=== PATIENT | male | born 1955 | race Caucasian/White ===

== ENCOUNTER 2019-05-04 10:23 | Emergency (ER) | payer OTHER ==
--- NOTE | 2019-05-04 10:26 | PDOC ---
History of Present Illness - General Chief Complaint: Pain Stated Complaint: ABDOMINAL PAIN Time Seen by Provider: 05/04/19 10:26 History Source: Patient Exam Limitations: No Limitations - History of Present Illness Initial Comments: 05/04/19 10:27 HPI 63-year-old male with history of essential tremor on propranolol, uncomplicated diverticulitis, anxiety depression, GERD presenting with left lower quadrant pain x 3 days. He was seen in the outpatient office with Dr Amor for his left lower quadrant plate pain about 1 month ago and presumed to be sigmoid diverticulitis, patient at that time had declined labs or CT imaging and had been advised diet and oral antibiotic course, Augmentin x14-day course which has been completed. He has been compliant with his diet for diverticulitis and felt improved after abx course. has history of uncomplicated diverticulitis previously and treated with course of cipro/flagyl, Pt started developing LLQ x 3 days, denies alleviating or exacerbating factors. no trauma. no systemic symptoms. Denies fever, chills, chest pain, SOB, palpitation, dizziness, weakness, N, V, D , bladder and bowel problems, urinary symptoms, focal weakness/paresthesias, leg swelling/pain, rash. No sick contacts or travel. No new changes in medications. No suspicious food intake Allergies: None Past Medical History: essential tremor diverticulitis, anxiety depression and GERD PSH: ganglion cyst removal. no major abdominal surgeries. Social history: Lives with family. No tobacco, ETOH or drug use. Meds: omeprazole, propranolol PMD: Dr Amor Review of systems Constitutional: no fevers or chills. No weakness HEENT: no headache or dizziness. CVS: no cp or syncope. Resp: no sob. No cough. Gastrointestinal: +abdominal pain, No nausea, vomiting, diarrhea. no constipation. Genitourinary: no urinary sx, hematuria. no urgency or frequency or dysuria. MUSCULOSKELETAL: No joint pain and swelling. No neck or back pain. SKIN: no redness or skin changes, no discharge, no rash. No wounds. Hematologic: no easy bruising/bleeding. NEUROLOGIC: No headache, dizziness, LOC or altered mental status. No weakness, numbness or tingling. Endocrine: no hyperglycemia or hypoglycemia. Allergic/Immunologic: no allergies All other systems reviewed and negative, or as documented in HPI. Physical exam General: Well appearing, awake and alert, NAD. HEENT: NCAT, PERRL, EOMI, clear conjunctiva, anicteric, moist mucus membranes, clear oropharynx, no oral lesions.. Neck: neck supple, FROM Resp: CTAB, normal and even respirations, no respiratory distress CVS: RRR, no murmurs, 2+ peripheral pulses throughout, no peripheral edema Abdomen: soft, nondistended, no rebound or guarding, no CVAT. +LLQ tenderness. + reducible umbilical hernia. : normal external genitalia, normal testicular lie. no tenderness. no hernia with valsalva. Back: nontender, normal inspection and ROM MSK: no edema, HDEZ x4, ROM intact. No clubbing or cyanosis. normal bulk and tone. Extremities: no calf tenderness Neuro: alert, oriented appropriately; no focal neurologic deficits, +chronic tremors Psych: Calm and cooperative Skin: warm and well perfused, cap refill <2 sec, normal color, no rash or skin discoloration. 05/04/19 10:28 05/04/19 10:46 Past History - Past Medical History Allergies/Adverse Reactions: Allergies Allergy/AdvReac Type Severity Reaction Status Date / Time No Known Allergies Allergy Verified 05/04/19 10:26 Home Medications: Ambulatory Orders Pantoprazole Sodium 20 mg PO 1-2X/day #60 05/27/16 Ciprofloxacin [Cipro -] 500 mg PO Q12H 10 Days #20 tablet 05/04/19 metroNIDAZOLE [Flagyl -] 500 mg PO TID 10 Days #30 tablet 05/04/19 Anemia: No Asthma: No Cancer: No Cardiac Disorders: No CVA: No COPD: No CHF: No Dementia: No Diabetes: No GI Disorders: Yes (GERD) Disorders: No HTN: No Hypercholesterolemia: No Liver Disease: No Seizures: No Thyroid Disease: No - Surgical History Abdominal Surgery: No Appendectomy: No Cardiac Surgery: No Cholecystectomy: No Neurologic Surgery: No Orthopedic Surgery: No - Immunization History Immunization Up to Date: No - Psycho Social/Smoking Cessation Hx Smoking History: Former smoker Have you smoked in the past 12 months: No Number of Cigarettes Smoked Daily: 0 If you are a former smoker, when did you quit?: 1977 Hx Alcohol Use: No Drug/Substance Use Hx: No Substance Use Type: None Hx Substance Use Treatment: No ED Treatment Course - LABORATORY CBC & Chemistry Diagram: 11/29/19 10:58 05/04/19 10:58 Medical Decision Making - Medical Decision Making 05/04/19 10:50 Vital Signs Temp Pulse Resp BP Pulse Ox 98.5 F 72 15 133/90 99 05/04/19 10:25 05/04/19 10:25 05/04/19 10:25 05/04/19 10:25 05/04/19 10:25 DDx abdominal pain: Renal colic, biliary colic, metabolic/electrolyte derangements. GERD, PUD, esophageal spasm, pancreatitis, hepatitis, constipation , colitis, gastroenteritis, cholecystitis, UTI, pyelonephritis, ileus, SBO, medication side effect, hernia, appendicitis, diverticulitis, mesenteric ischemia. msk strain, mesenteric adenitis, psoas abscess. labs and lytes wnl, reassuring lactic normal, less likely septic lipase/LFTs normal no wbc ct no systemic findings/symptoms. he is well appearing, pain improved and elects for discharge with retrial of abx as discussed below. CT with acute sigmoid diverticulitis without abscess formation. no perf or obstruction The patient appears comfortable and states that pain is improved. Given medications IVF/tylenol with clinical improvement. Tolerating oral intake. Vital signs reviewed and are normal. On repeat physical exam, the abdomen is soft and nontender, no suggestive findings for peritoneal findings. will trial cipro/flagyl x 10 day course with low residue/clear liquid diet for acute flare. very strict return precautions given. All diagnostics tests reviewed and discussed with the patient. 05/04/19 13:00 clinical call back with Dr Negrete who had initially sent pt in from Dr Amor office results discussed, amenable to outpatient followup Pt to be discharged in stable condition. Patient made aware of clinical impression, treatment recommendations and disposition plan, return precautions discussed (including but not limited to new or persistent/worsening symptoms, pain, fevers, or signs of infection, chest pain, respiratory distress, inability to tolerate oral intake, dehydration, syncope, or neurologic changes) . Follow up with PMD and/or specialist as recommended, follow up information provided, take medications as instructed for duration of time. continue with supportive care, avoid triggers and precipitants. All questions answered to patient's satisfaction and expressed understanding and comfort with this. At the time of discharge, the patient is alert, clinically improved, tolerating po and verbalizes understanding of instructions, satisfied with the care received and felt comfortable with the plan. Patient does not suffer from an acute life- threatening medical condition at this time and is safe for outpatient follow- up. 05/04/19 13:08 Discharge - Discharge Information Problems reviewed: Yes Clinical Impression/Diagnosis: Diverticulitis Condition: Good Disposition: HOME - Admission No - Additional Discharge Information Prescriptions: Ciprofloxacin [Cipro -] 500 mg PO Q12H 10 Days #20 tablet metroNIDAZOLE [Flagyl -] 500 mg PO TID 10 Days #30 tablet - Follow up/Referral Referrals: Gulshan Amor MD [Primary Care Provider] - Rgoe Negrete MD [Staff Physician] - - Patient Discharge Instructions Patient Printed Discharge Instructions: DI for Diverticulitis Additional Instructions: 1) Please follow-up with your primary care doctor in the next 1-2 days. Please call tomorrow for for any urgent issues. you have a condition called acute diverticulitis involving your lower colon. 2) You were given a copy of the tests performed today. Please bring the results with you and review them with your primary care doctor. Your laboratory / imaging results revealed the diverticulitis without complications. 3) If you have any worsening of symptoms or any other concerns please return to the ED immediately. Return if worsening symptoms including fevers, headache, vomiting, visual or hearing disturbances, abdominal pain, chest pain, shortness of breath, syncope, dehydration, inability to take things by mouth/vomiting, altered mental status, or worsening concerning symptoms. 4) Please continue taking your home medications as directed. your medications on discharge include Ciprofloxacin twice a day and Metronidazole three times a day x 10 days total . side effects may include upset stomach, abdominal pain, vomiting, or diarrhea. do not drink alcohol with your medications. you can take probiotics to enhance your gut wilbert Stay well hydrated and rest adequately. Make an appointment. If you cannot follow-up with your primary care doctor please return to the ED Low-fiber foods Low-fiber foods to consider eating if you have symptoms of diverticulitis include: white rice, white bread, or white pasta, but avoid gluten-containing foods if youre intolerant dry, low-fiber cereals processed fruits such as applesauce or canned peaches cooked animal proteins such as fish, poultry, or eggs olive oil or other oils yellow squash, zucchini, or pumpkin: peeled, seeds removed, and cooked cooked spinach, beets, carrots, or asparagus potatoes with no skin fruit and vegetable juices Clear liquid diet A clear liquid diet is a more restrictive approach to relieving diverticulitis symptoms. Your doctor may prescribe it for a short period of time. A clear liquid diet usually consists of: water ice chips ice pops with frozen fruit puree or pieces of finely chopped fruit soup broth or stock gelatin, such as Jell-O tea or coffee without any creams, flavors, or sweeteners clear electrolyte drinks Please return to the emergency department immediately should you feel worse in any way or have any of the following symptoms: increasing or different abdominal pain, persistent vomiting, fevers or shaking chills. Please return to the emergency department for a recheck in 2-3 days if the pain is persistent or worse so we can re-evaluate you and ensure that you are not developing a problem that would require surgery or hospitalization. - Post Discharge Activity
[2019-05-04] MEDS ORDERED: SODIUM CHLORIDE 1,000 ML IV STA (10:27)
[2019-05-04 10:47] VITALS: BMI 31.5
[2019-05-04] MEDS ORDERED: ACETAMINOPHEN 1000 MG/100 ML VIAL (NON FORMULARY) IVPB ONE (10:50)
[2019-05-04] MEDS ORDERED: ACETAMINOPHEN INJECTION 100 ML IVPB ONE (11:12)
[2019-05-04 11:13] LABS: BASO % 0.5 % (0-2.0); EOS % 0.6 % (0-4.5); HEMATOCRIT 46.4 % (35.4-49); HEMOGLOBIN 15.7 GM/dl (11.7-16.9); LYMPH % 27.1 % (8-40); MCH 29.7 pg (25.7-33.7); MCHC 33.8 g/dl (32.0-35.9); MEAN CELL VOLUME 87.8 fl (80-96); MEAN PLT VOLUME 8.3 fl (7.5-11.1); MONO % 10.4 % (3.8-10.2); NEUT % 61.4 % (42.8-82.8); PLATELET COUNT 237 K/MM3 (134-434); RBC 5.29 M/mm3 (4.00-5.60); RDW 12.2 % (11.9-15.9); WHITE BLOOD COUNT 7.3 K/mm3 (4.0-10.8)
[2019-05-04 11:21] LABS: ALBUMIN 4.1 g/dl (3.4-5.0); BILIRUBIN,TOTAL 2.3 mg/dl (0.2-1); CALCIUM 8.8 mg/dl (8.5-10); CREATININE 0.8 mg/dl (0.55-1.3); POTASSIUM 3.9 mmol/L (3.5-5.1); TOT PROT 6.7 g/dl (6.4-8.2)
[2019-05-04 12:47] VITALS: BP 116/74; PULSE 55; TEMP 97.7
[2019-05-04] MEDS ORDERED: metroNIDAZOLE 250 MG TABLET PO ONE (13:04)
[2019-05-04] MEDS ORDERED: CIPROFLOXACIN 500 MG TABLET (RESTRICTED TO ID) PO ONE (13:04)
[2019-05-04] MEDS ORDERED: metroNIDAZOLE 250 MG TABLET ONE (13:13)
[2019-05-04] MEDS ORDERED: CIPROFLOXACIN 250 MG TABLET (RESTRICTED TO ID) PO ONE (13:13)
== END 2019-05-04 13:25 | disposition home or self-care (01) ==
LOC: FER 10:23
PROC: 3E033NZ Introduction of Analgesics, Hypnotics, Sedatives into Peripheral Vein, Percutaneous Approach (ICD-10-PCS; principal; 2019-05-04)
PROC: 3E0337Z Introduction of Electrolytic and Water Balance Substance into Peripheral Vein, Percutaneous Approach (ICD-10-PCS; 2019-05-04)
DX: K57.92 Diverticulitis of intestine, part unspecified, without perforation or abscess without bleeding (principal); Z87.891 Personal history of nicotine dependence; K21.9 Gastro-esophageal reflux disease without esophagitis
CPT/HCPCS: 36415; 74177-TC; 80053; 81003; 83605; 83690; 85025; 99283-25; J0131; J7030

== ENCOUNTER 2023-07-13 08:22 | Day surgery (SDC) | payer OTHER ==
[2023-07-05 14:14] VITALS: BMI 31.5
[2023-07-13] MEDS ORDERED: MIDAZOLAM HCL 2 MG/2 ML SINGLE DOSE VIAL ONE (09:05)
[2023-07-13] MEDS ORDERED: PROPOFOL 20 ML ONE (09:05)
[2023-07-13] MEDS ORDERED: oxyCODONE HCL 5 MG TABLET PO PRN (09:08)
[2023-07-13] MEDS ORDERED: ONDANSETRON 4 MG/2 ML VIAL IVPUSH PRN (09:08)
[2023-07-13] MEDS ORDERED: LACTATED RINGERS SOLUTION 1,000 ML IV SCH (09:15)
[2023-07-13] MEDS ORDERED: LIDOCAINE HCL/PF 2% SDV 5ML VIAL ONE (09:17)
[2023-07-13] MEDS ORDERED: DEXAMETHASONE SOD PHOSPHATE 4 MG/1 ML VIAL ONE (09:27)
[2023-07-13] MEDS ORDERED: BUPIVACAINE HCL/PF 0.25% (2.5MG/ML) 10 ML VIAL ONE (09:31)
[2023-07-13] MEDS ORDERED: GLYCOPYRROLATE 0.2 MG/1 ML VIAL ONE (09:55)
[2023-07-13] MEDS: BUPIVACAINE HCL/PF 0.25% (2.5MG/ML) 10 ML VIAL IJ ONE (10:11)
[2023-07-13 11:24] VITALS: RESP 18; TEMP 97.6
[2023-07-13 12:22] VITALS: BP 126/78
[2023-07-13 12:49] VITALS: PULSE 57
== END 2023-07-13 12:49 | disposition home or self-care (01) ==
LOC: FASU 08:22
PROVIDERS: ATTEND Orthopaedic Surgery Hand Surgery
PROC: 0LX70ZZ Transfer Right Hand Tendon, Open Approach (ICD-10-PCS; principal; 2023-07-13 09:29)
DX: S66.211A Strain of extensor muscle, fascia and tendon of right thumb at wrist and hand level, initial encounter (principal); X58.XXXA Exposure to other specified factors, initial encounter; Y92.9 Unspecified place or not applicable; Y93.9 Activity, unspecified
CPT/HCPCS: 94760

== ENCOUNTER 2024-03-18 12:42 | Emergency (ER) | payer OTHER ==
[2024-03-18 12:54] VITALS: BP 140/93; PULSE 82; RESP 16; TEMP 98.6; BMI 32.3
[2024-03-18] MEDS ORDERED: DOXYCYCLINE HYCLATE 100 MG CAPSULE PO ONE (12:59)
[2024-03-18] MEDS: DOXYCYCLINE HYCLATE 100 MG CAPSULE PO ONE (13:09)
== END 2024-03-18 13:15 | disposition home or self-care (01) ==
LOC: FER 12:42
DX: S20.461A Insect bite (nonvenomous) of right back wall of thorax, initial encounter (principal); W57.XXXA Bitten or stung by nonvenomous insect and other nonvenomous arthropods, initial encounter
CPT/HCPCS: 99283-25